=== PATIENT | female | born 1985 | race Caucasian/White ===

== ENCOUNTER 2017-11-17 00:01 | Inpatient (IN) | payer OTHER ==
[~2017-11-17] VITALS: Ht 165.1 cm; Wt 85.0 kg
[~2017-11-17 00:01] MED LIST: LEVOTHYROXINE25 MCG PO; PRENATAL VITAM1 EACH PO
--- NOTE | 2017-11-18 08:53 | PR ---
[facility] [address] [facility] [place], [place] [address] Signed PP Progress Notes Datetime Report Generated by STEVEN: 11/18/2017 08:53 SUBJECTIVE: [id number] Pain: Within normal limits Nausea/Vomiting: Denies Vital Signs: [id number] Vital Signs: Reviewed; Within Normal Limits Notable Details: No HTN EXAM: [id number] Cardiovascular: Not Done Respiratory: Not Done Abdomen/Uterus: Abnormal Lochia: Normal Vulva/Perineum: Not Done Breasts: Not Done CVA Tenderness: Not Done Extremities: Normal Incision: Not Applicable Progress: Normal Exam Comments: Fundus firm, NT @ U-1. H/H 10.9/32.0, WBC 15, plat 186k IMPRESSION/PLAN/PROCEDURES: [id number] Impression: Normal progression Plan: Discharge Procedures: None Progress Notes: Doing well. She is stable for D/C. Signing Physician: Holly Thomas MD CC: *Electronically Signed* 11/18/17 0853 HOLLY THOMAS MD PATIENT NAME: KLAUS GUAMAN PROGRESS NOTE DATE OF : 89 PHYSICIAN: HOLLY THOMAS MD RPT #: [id number] REPORT IS CONFIDENTIAL AND NOT TO BE RELEASED WITHOUT AUTHORIZATION
== END 2017-11-18 15:12 | disposition home or self-care (01) | DRG 775 ==
LOC: FBC 00:01 → MS 16:13 → FBC 16:16
PROVIDERS: ADMIT Obstetrics & Gynecology
PROC: 10907ZC Drainage of Amniotic Fluid, Therapeutic from Products of Conception, Via Natural or Artificial Opening (ICD-10-PCS; principal; 2017-11-17)
PROC: 0KQM0ZZ Repair Perineum Muscle, Open Approach (ICD-10-PCS; principal; 2017-11-17)
PROC: 10E0XZZ Delivery of Products of Conception, External Approach (ICD-10-PCS; principal; 2017-11-17)
PROC: 00HU33Z Insertion of Infusion Device into Spinal Canal, Percutaneous Approach (ICD-10-PCS; 2017-11-17)
PROC: 3E0R3BZ Introduction of Anesthetic Agent into Spinal Canal, Percutaneous Approach (ICD-10-PCS; 2017-11-17)
DX: O14.94 Unspecified pre-eclampsia, complicating childbirth (principal); Z3A.37 37 weeks gestation of pregnancy; Z37.0 Single live birth; O70.1 Second degree perineal laceration during delivery; O99.284 Endocrine, nutritional and metabolic diseases complicating childbirth; E03.9 Hypothyroidism, unspecified; O13.4 Gestational [pregnancy-induced] hypertension without significant proteinuria, complicating childbirth
CPT/HCPCS: 01960; 36415; 82565; 84450; 84520; 84550; 85025; 85027; J1644; J2590

== ENCOUNTER 2019-12-28 05:45 | Day surgery (SDC) | payer OTHER ==
[~2019-12-28] VITALS: Ht 165.1 cm; Wt 64.4 kg
--- NOTE | ~2019-12-28 | OR ---
[facility] [address] [place], [place] [address] Draft DATE OF OPERATION: 12/28/2019 SURGEON: Holly Thomas MD PREOPERATIVE DIAGNOSES: Pelvic pain, dyspareunia. POSTOPERATIVE DIAGNOSES: Pelvic pain, dyspareunia with diffuse pelvic endometriosis. PROCEDURE: Laparoscopy with laser fulguration of endometriosis. ANESTHESIA: General ET. ESTIMATED BLOOD LOSS: Minimal. DRAINS: None. INDICATIONS AND FINDINGS: The patient is a 34-year-old female, 3, para 3, currently using a Mirena for control, who has been having worsening pelvic pain and dyspareunia despite using the Mirena. Ultrasound was normal. It was felt that she likely had endometriosis and that further evaluation was needed. At the time of surgery, exam under anesthesia was normal. At the time of laparoscopy, there was diffuse endometriosis primarily over the posterior cul-de-sac, the right posterior ovarian fossa, and the right anterior peritoneum. DESCRIPTION OF PROCEDURE: The patient was prepped and draped in the dorsal lithotomy position. An open-sided speculum was placed and the anterior lip of the cervix was grasped with a single-tooth tenaculum. The Hulka clamp was then placed. The tenaculum and speculum were then removed. Attention was directed above. The infraumbilical area was injected with 0.5% Marcaine plain. An incision was made with a knife, and each layer was then serially elevated and incised until the fascia was opened and identified and stay sutures of #0 Vicryl placed. The peritoneum was opened bluntly. Reba cannula was then placed and the balloon inflated. Placement of the scope confirmed proper positioning. The pelvis PATIENT NAME: KLAUS GUAMAN OPERATIVE REPORT DATE OF : [birth year] REPORT #: [id number] PHYSICIAN: HOLLY THOMAS MD PCP: NO PRIMARY CARE PHYSICIAN REPORT IS CONFIDENTIAL AND NOT TO BE RELEASED WITHOUT AUTHORIZATION [facility] [address] [place], [place] [address] Draft was then visualized after inflating the abdomen. The planned procedure appeared appropriate, there was evidence of pathology. A secondary port was placed on the left side. This area was transilluminated, injected with the Marcaine, incision made with a knife and the trocar placed under direct vision. Following this, the endometriosis was seen. The fiber-tip CO2 laser was then used with a power of 10 on continuous. The posterior cul-de-sac lesions were completely ablated. There were some on the left uterosacral, this was also taken care of. The patient's right ovary had previously been removed. There was a little bit of superficial endometriosis over the round ligament on the right side and this was treated with the laser as well. There was also some endometriosis in the right posterior ovarian fossa. The ureter was easily seen and it was above this area and this area was completely ablated as well. Attention was then directed to the anterior cul-de-sac. There was an area of endometriosis in the right anterior peritoneum and this was ablated as well. There was no evidence of any nodules at any of these locations. The patient's left ovary appeared normal. Following this, the pelvis was irrigated and inspected. There was no evidence of any other endometriosis seen. The procedure was terminated with removal of the instruments after allowing as much CO2 as possible to escape. The fascial incision of the umbilicus was reidentified and closed with a running suture of #0 Vicryl. A suture of #0 Vicryl was used in the deep space as well to close this. The skin incisions were closed with subcuticular sutures of 3-0 Vicryl Rapide. Attention was directed down below and the Hulka clamp removed. The cervix was visualized and initially, there was some bleeding from the right hand tenaculum site, but this responded to pressure and no sutures were needed. All sponge and needle counts were correct. She was taken to the recovery room in good condition. MD BECKI Barr/PADMA /[id number] Copies: ~ PATIENT NAME: KLAUS GUAMAN OPERATIVE REPORT DATE OF : [birth year] REPORT #: [id number] PHYSICIAN: HOLLY THOMAS MD PCP: NO PRIMARY CARE PHYSICIAN REPORT IS CONFIDENTIAL AND NOT TO BE RELEASED WITHOUT AUTHORIZATION
[~2019-12-28 05:45] MED LIST changes: +PROZAC20 MG PO
--- NOTE | 2019-12-28 11:32 | NUR ---
PATIENT HAS 0 COMPLAINTS, BUT I NOTICE SOME REPEDATIVE QUESTIONS.
--- NOTE | 2019-12-28 11:33 | NUR ---
12/28/19 1133 Carmen Thurman 1054 PT ARRIVED IN PACU SHIVERING. GOWN CHANGED AND WARM BLANKETS PLACED. STEPHANIE PAW PUT ON PT FOR COMFORT. 1110 DR AT BEDSIDE TALKING WITH PT. ALL QUESTIONS ANSWERED. 1125 TO DS. REPORT GIVEN TO RN. STEPHANIE PAW PLACED ON PT.
--- NOTE | 2019-12-28 12:41 | NUR ---
PT IS TOLERATING WATER. SHE WOULD LIKE TO ORDER A SANDWICH. REPORTS MINIMAL PAIN AT THIS TIME. CALL LIGHT WITHIN REACH. NO ADDITIONAL NEEDS.
--- NOTE | 2019-12-28 13:50 | NUR ---
PT HAS MET ALL CRITERIA. SHE IS TOLERATING FLUID AND SOLIDS. SHE IS ABLE TO VOID. SHE IS ABLE TO AMBULATE INDEPENDENTLY. SHE WOULD LIKE TO GO HOME.
--- NOTE | 2019-12-28 13:57 | NUR ---
PT IS GIVEN VERBAL DC INSTRUCTIONS, SHE VERBALIZES UNDERSTANDING. SHE DENIES HAVING ANY QUESTIONS AT THIS TIME. SHE CALLS HER TO PICK HER UP AT THE FRONT. SHE IS TAKEN TO VEHICLE VIA BY SAHRA NICHOLE RN. SHE TRANSFERS HERSELF FROM TO VEHICLE.
== END 2019-12-28 14:00 | disposition home or self-care (01) ==
LOC: DS 05:45
PROVIDERS: Obstetrics & Gynecology
PROC: 0U594ZZ Destruction of Uterus, Percutaneous Endoscopic Approach (ICD-10-PCS; principal; 2019-12-28 08:30)
DX: N80.3 Endometriosis of pelvic peritoneum (principal); N94.10 Unspecified dyspareunia; F32.9 Major depressive disorder, single episode, unspecified; N94.6 Dysmenorrhea, unspecified; N70.11 Chronic salpingitis; Z88.5 Allergy status to narcotic agent; Z88.8 Allergy status to other drugs, medicaments and biological substances; Z79.899 Other long term (current) drug therapy
CPT/HCPCS: J1100; J1885; J2250; J2405; J2704; J2765; J3010; J7121

== ENCOUNTER 2021-01-09 06:00 | Day surgery (SDC) | payer OTHER ==
[~2021-01-09] VITALS: Ht 165.1 cm; Wt 68.6 kg
--- NOTE | ~2021-01-09 | OR ---
[facility] [address] [place], [place] [address] Draft DATE OF OPERATION: 01/09/2021 SURGEON: Holly Thomas MD FLIGHT TEST SHOP MECHANIC: Marlon Kelley MD PREOPERATIVE DIAGNOSIS: Pelvic pain, history of endometriosis. POSTOPERATIVE DIAGNOSIS: Pelvic pain, history of endometriosis. PROCEDURES: Total laparoscopic hysterectomy, left salpingectomy, removal left ovarian cyst, cystoscopy. ANESTHESIA: General ET. ESTIMATED BLOOD LOSS: 50 mL. DRAINS: Millan catheter. INDICATIONS AND FINDINGS: The patient is a 35-year-old female, 3, para 3, who is currently using the Mirena for control and has a long history of pelvic pain and dysmenorrhea. She underwent laparoscopy approximately 1 year ago and endometriosis was found and treated at that time. Since then, she is really continued to have pain. She has been on control pills in the past and did not tolerate these. She had a trial of Orilissa and this caused significant mood issues. At this point, she desires definitive treatment. At the time of surgery, exam under anesthesia was normal. The IUD was easily removed. The patient's right tube and ovary were previously removed. The uterus and cervix appeared normal. The left ovary had an apparent cyst in the inferior pole, but otherwise appeared normal. There was no evidence of recurrent endometriosis at the time of her surgery. DESCRIPTION OF PROCEDURE: PATIENT NAME: KLAUS GUAMAN OPERATIVE REPORT DATE OF : 89 REPORT #: [id number] PHYSICIAN: HOLLY THOMAS MD PCP: NO PRIMARY CARE PHYSICIAN REPORT IS CONFIDENTIAL AND NOT TO BE RELEASED WITHOUT AUTHORIZATION [facility] [address] [place], [place] [address] Draft The patient was prepped and draped in the dorsal lithotomy position. A weighted speculum was placed and the anterior lip of the cervix was visualized and grasped with a single-tooth tenaculum. The IUD was removed. The cavity sounded to 7 cm. The endocervical canal was then dilated and the VCare was inserted and the balloon inflated the fundus. Following this, the tenaculum and speculum removed. The cup was fitted over the cervix and a locking cap was fitted into place. Attention was then directed above. The infraumbilical area was injected with 0.5% Marcaine plain and incision was made with a knife. Each layer was serially elevated and incised until the fascia was opened and identified and stay sutures were placed of 0 Vicryl. The peritoneum was opened sharply. The Waller was then placed. The balloon inflated. Placed on the scope, confirmed proper positioning. CO2 was then introduced into the abdomen. When the abdomen was appropriately distended, the lateral ports were placed. These were placed laterally slightly below the level of the umbilicus. These areas were transilluminated, injected with the Marcaine. Incision made with a knife and the trocars placed under direct vision. The left port was a 5 mm port and the right was the Veress needle followed by the expanding port. Following this, the pelvis was visualized and the planned procedure appeared appropriate. The patient's left tube was then serially coagulated and divided using the LigaSure [place] device. It was amputated at the cornua and the specimen removed. The utero-ovarian pedicle was quite thick and also involves some of the ovarian cyst. This was coagulated and divided as well. The round ligament was then serially coagulated and divided. Following this, the ovarian cyst on the patient's left was removed and the specimen retrieved. This appeared to be a corpus luteum. The anterior leaf of the broad ligament was then incised allowing for creation of a partial bladder flap. The peritoneum was taken down posteriorly as well. Uterine vessels on the left were then skeletonized and coagulated multiple times and then divided. Following this, attention was directed to the patient's right. The round ligament was serially coagulated and divided. The anterior leaf of the peritoneum incised allowing for completion of the bladder flap. The peritoneum was taken down posteriorly as well. The uterine vessels were then serially coagulated and divided. Further dissection was done both posteriorly and anteriorly. Attention was redirected to the patient's left side and further dissection was done as well, particularly in the uterine vessel area. The pelvis was then irrigated and it was felt that the specimen was ready to be removed from the cuff. The Sonicision device was then used to separate the specimen from the vaginal cuff. This was begun posteriorly and wrapped around the patient's left to anteriorly and then again posteriorly wrapped around the patient's right and anteriorly. Following this, the specimen was retrieved vaginally. A glove with a wet lap tape was placed in the vagina allowing for recreation of the pneumoperitoneum. The abdomen was then irrigated. There were bleeding points on the posterior cuff, which were controlled using the Betsy device. There was also some bleeding in the patient's right uterine vessel area and this was treated with the monopolar cautery with Dolphin tips. There was also some bleeding along the ovary where the tube had been removed on the patient's left and this was also controlled with the PATIENT NAME: KLAUS GUAMAN OPERATIVE REPORT DATE OF : [birth year] REPORT #: [id number] PHYSICIAN: HOLLY THOMAS MD PCP: NO PRIMARY CARE PHYSICIAN REPORT IS CONFIDENTIAL AND NOT TO BE RELEASED WITHOUT AUTHORIZATION [facility] [address] [place], [place] [address] Draft monopolar cautery. Following this, the abdomen was again irrigated and the bleeding appeared significantly less. The vaginal cuff was then closed using the Endo Stitch. This was closed from the patient's right uterosacral ligament, taking care to incorporate the vaginal epithelium posteriorly and anteriorly and run to the patient's left uterosacral ligament and back to the center. Following this, the abdomen was again irrigated and inspected and bleeding appeared well controlled. Tisseel was then sprayed over the vaginal cuff and over the patient's left ovary to assure hemostasis. The inserts were then removed from the abdomen after allowing as much CO2 as possible to escape. The fascial incision of the umbilicus was reidentified and closed with running suture of 0 Vicryl. The stay sutures were tied across as well. The skin incisions were closed with subcuticular sutures of 3-0 Vicryl Rapide. Attention was then directed down below and the vaginal pack was removed. The Millan catheter was removed and cystoscopy was done. The 30 degree scope was placed and the bladder inflated. There was no evidence of any injury to the bladder. Both ureteral orifices were identified and there was some clear fluid seen to egress from the patient's right ureter fairly early. There was eventually some urine also passing through the patient's left ureteral orifice. She had received IV fluorescein, but none of this was visible in the bladder. Following this, the cystoscopy was complete and this was removed. The bladder was drained and the Millan catheter replaced. All sponge and needle counts were correct. She tolerated procedure well and was taken to the recovery room in good condition. Holly Thomas MD PJW/MODL /[id number] cc: MD Marlon Lewis MD Copies: LUCIANO KEVIN MD, MICHAEL JOHN MD ~ PATIENT NAME: KLAUS GUAMAN OPERATIVE REPORT DATE OF : 89 REPORT #: [id number] PHYSICIAN: HOLLY THOMAS MD PCP: NO PRIMARY CARE PHYSICIAN REPORT IS CONFIDENTIAL AND NOT TO BE RELEASED WITHOUT AUTHORIZATION
[~2021-01-09 06:00] MED LIST changes: +PROZAC10 MG PO; -PROZAC20 MG PO
--- NOTE | 2021-01-09 09:33 | NUR ---
01/09/21 0933 Jeny Fox 1342-PATIENT ARRIVED TO PACU ON 6L MASK NONAROUSABLE ORAL AIRWAY IN PLACE. RR EVEN. 3 LAP SITES TO ABDOMEN CDI WITH BANDAIDS AND STERI STRIPS. IVF INFUSING. SR.
--- NOTE | 2021-01-09 09:34 | NUR ---
PT ALERT, ORIENTED AND SUPPORTED BY HER CRISTINA. PT ADMITTED SHE HAS HAD MANY SURGERIES,KNOWS ROUTINE. ALL QUESTIONS ASKED ANSWERED. CRISTINA WILL REMAIN SURING SURGERY AND RECOVERY. DR BRADY IN TO SEE PT, GAVE BLESSING.
--- NOTE | 2021-01-09 10:24 | NUR ---
PATIENT RETURNS FROM PACU AND IS SHIVERING. SHE REPORTS BEING "A LITTLE" NAUSEOUS AND RATES PAIN 5/10 IN HER ABDOMEN. PRN IS GIVEN FOR NAUSEA AND PAIN. PATIENT'S SPOUSE IS AT THE BEDSIDE. ICED WATER IS GIVEN. STEPHANIE HUCAYLAER IS ON WARM. CALL LIGHT IS WITHIN REACH.
[2021-01-09] MEDS ORDERED: PERCOCET 5-3251 EACH PO (10:45)
[2021-01-09] MEDS ORDERED: IBUPROFEN800 MG PO (10:45)
[2021-01-09] MEDS ORDERED: ONDANSETRON ODT8 MG PO (10:45)
--- NOTE | 2021-01-09 11:26 | NUR ---
PATIENT IS AWAKE AND JELLO IS GIVEN. PATIENT REPORTS SHE IS LESS NAUSEOUS ALTHOUGH "IT'S STILL THERE." PEÑA BALLOON IS DEFLATED FOR 9 ML LIQUID AND PEÑA IS DC WNL. PATIENT TOLERATES THAT WELL. 800 ML BRIGHT, YELLOW URINE IS NOTED TO PEÑA OVERNIGHT BAG. PATIENT'S SPOUSE REMAINS AT THE BEDSIDE. CALL LIGHT IS WITHIN REACH.
--- NOTE | 2021-01-09 12:20 | NUR ---
PATIENT IS SITTING UP EATING JELLO AND DRINKING WATER AND DOING WELL WITH THAT. PATIENT DENIES ADDITIONAL NEEDS AT THIS TIME.
--- NOTE | 2021-01-09 14:34 | NUR ---
PATIENT IS UP AND SITTING ON THE EDGE OF THE BED. SHE REPORTS NAUSEA WITH THAT POSITION CHANGE. SHE IS BACK IN BED, LAYING ON HER RIGHT SIDE. EMESIS BAG IS GIVEN. SPOUSE REMAINS AT THE BEDSIDE.
--- NOTE | 2021-01-09 14:46 | NUR ---
SANDWICH AND SOUP ORDERED FROM DIETARY.
--- NOTE | 2021-01-09 15:04 | NUR ---
PATIENT IS SITTING UP IN BED EATING AND DRINKING AND TOLERATING THAT WELL. HARD COPY RX GIVEN TO PATIENT'S AND HE IS TAKING IT TO FILL HERE IN [place] PRIOR TO LEAVING T[place].
--- NOTE | 2021-01-09 16:32 | NUR ---
PATIENT IS UP TO THE BATHROOM WITH MY ASSIST. SHE REPORTS "A LITTLE" LIGHT HEADEDNESS. SHE VOIDS 150 ML DARK, YELLOW URINE AND PULLS THE CALL LIGHT IN THE BATHROOM. SHE REPORTS BEING "VERY LIGHT HEADED." WHEELCHAIR OBTAINED FROM 2ND RN SARAH DEXTER RN. PATIENT TRANSFERS HERSELF TO THE WHEELCHAIR AND TOLERATES THAT WELL. SHE TRANSFERS HERSELF BACK TO BED. BLOOD PRESSURE OBTAINED AND IS 94/48, PULSE OF 57. PATIENT'S SPOUSE REMAINS AT THE BEDSIDE. CALL LIGHT IS WITHIN REACH.
--- NOTE | 2021-01-09 16:37 | NUR ---
NEW BAG OF LR HUNG AND RUNNING WIDE OPEN. ATTEMPT TO CALL DR BRADY. NO ANSWER AT HER OFFICE. LEFT MESSAGE ON HER CELL PHONE AND SHE IS NOT ON FBC.
--- NOTE | 2021-01-09 17:21 | NUR ---
DISCUSSED PLAN OF CARE WITH PATIENT AND SHE AND HER VERBALIZE UNDERSTANDING. CALL TO DR. BRADY REGARDING PLAN OF CARE. NEW ORDERS RECEIVED. CALL TO [facility] REGARDING PATIENT'S TRANSFER THERE.
--- NOTE | 2021-01-09 17:47 | NUR ---
ARRIVES FROM SURGERY ON CART. ASSIST TO BED. REPORT RECIEVED. ASSESSMENT COMPLETED.
--- NOTE | 2021-01-09 17:48 | NUR ---
PATIENT TRANSFERS HERSELF FROM THE STRETCHER TO THE BED AND SHE TOLERATES THAT WELL. GOWN IS CHANGED. VERBAL, BEDSIDE REPORT IS GIVEN TO AIMEE AND HER QUESTIONS ARE ANSWERED. PATIENT'S SPOUSE REMAINS AT THE BEDSIDE. CALL LIGHT IS WITHIN REACH.
--- NOTE | 2021-01-09 19:35 | NUR ---
PATIENT ASSISTED TO THE RESTROOM A SBA. PATIENT ONLY REPORTS MILD DIZZINESS AND DENIES ANY NAUSEA. IS PRESENT IN THE ROOM. PATIENT IS BACK IN BED RESTING. SCDS IN PLACE. IV INFUSING PER ORDER. NO NEEDS NOTED. CALL LIGHT IN REACH.
--- NOTE | 2021-01-09 21:11 | NUR ---
PATIENT IS UP TO THE RESTROOM INDPENDENTLY. PATIENT DENIES BEING DIZZY. PATIENT GIVEN PRN PAIN MEDICATION FOR 5/10 PAIN IN HER ABD. PATIENT HAS X3 LAP SITES THAT HAVE A SMALL AMOUNT OF DRAINAGE. BANDAIADS PRESENT. PATIENT DENIES ANY NAUSEA. VITALS TAKEN AND RECORDED. INTAKE AND OUPUT RECORDED. EVENING MEDICATIONS GIVEN PER ORDER. PATIENT DENIES ANY FURTHER NEEDS. CALL LIGHT IN REACH. IN ROOM. OIV INFUSING PER ORDER.
--- NOTE | 2021-01-09 21:20 | NUR ---
PT CALLED, STATED THAT THE MOTRIN DID NOT "HELP THE PAIN", STILL A 5/10, MEDICATED WITH PERCOCET. EDUCATED PT TO CALL IF THAT DID NOT HELP. NO OTHER NEEDS AT THIS TIME.
--- NOTE | 2021-01-09 23:22 | NUR ---
PATIENT IS RESTING IN BED WITH EYES CLOSED, RR 17. CALL LIGHT IN REACH. ASLEEP ON COUCH.
--- NOTE | 2021-01-10 02:10 | NUR ---
PATIENTS VITALS TAKEN AND RECORDED. INTAKE AND OUPUT RECORDED. PATIENT RATES PAIN AT A 5/10 IN HER LOWER ABD. PATIENT GIVEN PRN PAIN MEDICATION. PATIENT DENIES ANY NAUSEA OR DIZZINESS. PATIENT DENIES ANY FURTHER NEEDS. IV INFUSING PER ORDER.
--- NOTE | 2021-01-10 04:23 | NUR ---
PATIENT IS RESTING IN BED WITH EYES CLOSED, RR 16. CALL LIGHT IN REACH.
--- NOTE | 2021-01-10 04:58 | NUR ---
PATIENT RESTED WELL DURING THE SHIFT. PATIENT IS ON RA. PATIENT IS ON A REG DIET AND TOLERATING IT WELL, NO NAUSEA NOTED. PATIENT HAS DENIED BEING DIZZY. PATIENT HAS DENIED ANY NAUSEA. PRN PAIN MEDICATION GIVEN PER ORDER. PATIENT IS AAOX4. PATIENT IS INDEPENDENT IN THE ROOM. PATIENT HAS X3 LAP SITES COVERED WITH BANDAIDS, DRAINAGE NOTED. PATIENTS IV INFUSING PER ORDER.
--- NOTE | 2021-01-10 06:24 | NUR ---
PATIENTS VITALS TAKEN AND RECORDED. INTAKE AND OUPUT RECORDED. PATIENT REPORTS 5/10 ABD PAIN. PATIENT GIVEN PRN PAIN MEDICATION. PATIENT DENIES ANY NAUSEA OR DIZZINESS. ICE WATER REFILLED. IV INFUSING PER ORDER. NO NEEDS NOTED. CALL LIGHT IN REACH.
--- NOTE | 2021-01-10 07:30 | NUR ---
Spoke with Allison and her spouse. She states they live in [place] in a 1 story home without steps. She does not use any DME. 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 Spouse has taken time off to stay with her. They do not have financial issues. Plans on dc to home. Spouse will grocery shop and drive her to appts.
--- NOTE | 2021-01-10 09:02 | NUR ---
MED REC COMPLETE
--- NOTE | 2021-01-10 09:20 | NUR ---
DC instructions given to patient and spouse. Verbalize understanding. Voiding without difficulty, ate 100% of breakfast. Incisions to abdomen covered with bandaids, some shadowing to umbilical incision site, unchanged from 01/09/21 PM.
--- NOTE | 2021-01-10 09:25 | NUR ---
TAKEN TO PERSONAL VEHICLE BY Efrain BLOCK CNA, SPOUSE AT SIDE. DC TO HOME.
--- NOTE | 2021-01-14 16:34 | PATH ---
[facility] [address] [place], [place] [address] Signed SPECIMEN(S): A UTERUS, CERVIX, AND LEFT FALLOPIAN TUBE SPECIMEN(S): B LEFT OVARIAN CYSTS SPECIMEN SOURCE: A. UTERUS, CERVIX, AND LEFT FALLOPIAN TUBE B. LEFT OVARIAN CYSTS CLINICAL HISTORY: Pelvic pain, history of endometriosis, dyspareunia. FINAL PATHOLOGIC DIAGNOSIS: A. Uterus, cervix, and left fallopian tube, hysterectomy and unilateral salpingectomy: - Cervix: Chronic inflammation and reactive epithelial changes. - Endometrium: Inactive endometrium with progestogen effect. - Myometrium: No histopathologic abnormality. - Fallopian tube: Paratubal cysts. - No evidence of malignancy. B. Ovarian cysts, left, excision: - Fragments of ovarian tissue and hemorrhagic corpus luteum cyst(s). - No evidence of malignancy. NAL:cml:C2NR MICROSCOPIC EXAMINATION: Histologic sections of all submitted blocks are examined by light microscopy. These findings, together with the gross examination, support the pathologic diagnosis. GROSS DESCRIPTION: Two specimens are received in two containers, labeled "MR." A. The specimen, labeled "MR, A," and designated on the requisition "uterus, cervix, left fallopian tube," is received in formalin and consists of a uterus with attached cervix and a detached fimbriated fallopian tube segment. The orientation of the uterus is grossly indeterminate. The uterus with attached cervix weighs 110 g and measures 9.0 x 6.2 x 3.7 cm. The uterine serosa is chavez-white, smooth, glistening. The ectocervical tissue is chavez-white to purple, smooth, and occupies a 3.2 x 3.0 cm area. The external os is oval, patent, and 1.2 cm in diameter. The internal os is patent and the cervical stroma is grossly unremarkable. The triangular endometrial cavity is slightly distorted and measures 4.5 x 2.5 cm. The chavez PATIENT NAME: KLAUS GUAMAN PATHOLOGY DATE OF : 89 REPORT #: [id number] PHYSICIAN: LAUREN PATHOLOGY PCP: NO PRIMARY CARE PHYSICIAN REPORT IS CONFIDENTIAL AND NOT TO BE RELEASED WITHOUT AUTHORIZATION [facility] [address] [place], [place] [address] Signed endometrium is up to 0.2 cm thick without a discrete mass/lesion. The chavez, rubbery myometrium is up to 1.8 cm thick without a discrete mass/lesion. The fimbriated fallopian tube segment is 8.2 cm long, 0.7 cm in diameter, chavez-white, grossly unremarkable and has a patent lumen. Popped Corn Oven Attendant sections are submitted as follows: A1-A2 cervix A3-A4 uterine wall A5 fallopian tube including fimbria entirely B. The specimen, labeled "MR,B," and designated on the requisition "left ovarian cysts," is received in formalin and consists of multiple chavez, ragged tissue fragments from less than 0.1 up to 2.7 cm. Many of the fragments have papillary-like excrescences from 0.4 up to 0.6 cm in greatest dimension. A grossly definitive cystic structure is not identified. Grossly identifiable ovarian tissue is not seen. The specimen is submitted entirely in 3 cassettes (B1-B3). AI (under the direct supervision of a pathologist) The Gross Description was prepared using a voice recognition system. The report was reviewed for accuracy; however, sound-alike word errors, addition and/or deletions may occur. If there is any question about this report, please contact Client Services. PERFORMING LABORATORY: The technical component was performed by [email or web address], [address] [place] [id number] (Trial Manager: Jenise Giron MD; CLIA# [id number]). Professional interpretation was performed [email or web address] [address] (CLIA# [id number]). Diagnostician: Shaista Braxton MD Pathologist Electronically Signed 01/14/2021 Copies: ~ PATIENT NAME: KLAUS GUAMAN PATHOLOGY DATE OF : 89 REPORT #: [id number] PHYSICIAN: LAUREN MAX PCP: NO PRIMARY CARE PHYSICIAN REPORT IS CONFIDENTIAL AND NOT TO BE RELEASED WITHOUT AUTHORIZATION
== END 2021-01-10 09:25 | disposition home or self-care (01) ==
LOC: OPS 06:00 → DS 06:00 → OPS 06:45 → DS 06:45 → MS 17:20 → OPS 01-10 09:25
PROVIDERS: ATTEND Obstetrics & Gynecology
PROC: 0UT94ZZ Resection of Uterus, Percutaneous Endoscopic Approach (ICD-10-PCS; principal; 2021-01-09 06:45)
PROC: 0UB64ZZ Excision of Left Fallopian Tube, Percutaneous Endoscopic Approach (ICD-10-PCS; 2021-01-09 06:45)
PROC: 0UB14ZZ Excision of Left Ovary, Percutaneous Endoscopic Approach (ICD-10-PCS; 2021-01-09 06:45)
DX: N80.3 Endometriosis of pelvic peritoneum (principal); N83.12 Corpus luteum cyst of left ovary; N72 Inflammatory disease of cervix uteri; N83.8 Other noninflammatory disorders of ovary, fallopian tube and broad ligament; E03.9 Hypothyroidism, unspecified; Z97.5 Presence of (intrauterine) contraceptive device; Z88.5 Allergy status to narcotic agent; Z88.8 Allergy status to other drugs, medicaments and biological substances; Z90.79 Acquired absence of other genital organ(s); Z90.721 Acquired absence of ovaries, unilateral; Z87.42 Personal history of other diseases of the female genital tract
CPT/HCPCS: 00840; J0330; J0694; J1100; J1644; J1790; J1885; J2001; J2250; J2270; J2405; J2704; J2765; J3475; J7121